=== PATIENT | female | born 1990 | race Two or more races ===

== ENCOUNTER 2018-05-11 09:52 | Inpatient (IN) | payer BC ==
[2018-05-11] MEDS ORDERED: OXYTOCIN 30 UNITS in 0.9% NS 30 UNIT/500 ML INFUS.BAG IVPB SCH (10:45)
[2018-05-11] MEDS ORDERED: TUBERCULIN PPD 5 TU/0.1ML SYRINGE (IN PATIENT USE ONLY) ID ONE (10:48)
[2018-05-11 10:54] LABS: BASO % 0.2 % (0-2.0); EOS % 0.5 % (0-4.5); HEMATOCRIT 33.6 % (32.4-45.2); HEMOGLOBIN 10.9 GM/dL (10.7-15.3); LYMPH % 15.9 % (8-40); MCH 25.8 pg (25.7-33.7); MCHC 32.6 g/dl (32.0-36.0); MEAN CELL VOLUME 79.2 fl (80-96); MEAN PLT VOLUME 8.3 fl (7.5-11.1); MONO % 7.4 % (3.8-10.2); PLATELET COUNT 243 K/MM3 (134-434); RBC 4.24 M/mm3 (3.60-5.2); RDW 15.4 % (11.6-15.6)
--- NOTE | 2018-05-11 11:05 | HP ---
Past Medical History - Admission History of Present Illness: 27 yo @ 38 2/7 wks by first trimester ultrasound consistent with LMP, EDC 05/23/2018 complicated by: 1. First trimester hyperemesis 2. Chest pain - s/p cardiology evaluation and Holter monitor, negative workup 3. Headaches - s/p neurology evaluation and negative workup 4. She declines all genetic screening, normal anatomy scan Patient presents with a chief complaint of a clear gush of fluid today at 0720. On presentation, she reports mild cramping. She also reports movement, denies vaginal bleeding. History Source: Patient Limitations to Obtaining History: No Limitations - Past Medical History Cardiovascular: No: HTN Pulmonary: No: Asthma Gastrointestinal: No: GERD ...: 1 ...Para: 0 ...EDC by Dates: 05/23/18 ...EDC by Sono: 05/23/18 Heme/Onc: No: Anemia - Past Surgical History Past Surgical History: Yes: None Hx Myomectomy: No Hx Transabdominal Cerclage: No - Alcohol/Substance Use Hx Alcohol Use: No History of Substance Use: reports: None - Social History History of Recent Travel: No Home Medications - Allergies Allergies/Adverse Reactions: Allergies Allergy/AdvReac Type Severity Reaction Status Date / Time No Known Allergies Allergy Verified 04/19/18 11:12 - Home Medications Home Medications: Ambulatory Orders Famotidine [Pepcid] 20 mg PO PRN 04/19/18 Vits96/Iron Fum/Folic [ Tablet] 1 each PO TID 04/19/18 Family Disease History - Family Disease History Family History: Denies Review of Systems - Review of Systems Constitutional: reports: No Symptoms Cardiovascular: reports: No Symptoms Respiratory: reports: No Symptoms Gastrointestinal: reports: No Symptoms Genitourinary: reports: No Symptoms Musculoskeletal: reports: No Symptoms Neurological: reports: No Symptoms Endocrine: reports: No Symptoms Hematology/Lymphatic: reports: No Symptoms Psychiatric: reports: No Symptoms Physical Exam - Maternity Constitutional: Yes: Well Nourished, No Distress, Calm Neck: Yes: Supple Cardiovascular: Yes: Regular Rate and Rhythm Lungs: Clear to auscultation - Abdominal Exam/OB Fundal Height: 40 Number of Fetuses: Single Presentation: Vertex Contractions: Yes Regularity: Regular Intensity: Mild/Mod Monitor Mode: Internal Heart Rate (range): 130 Category: I Accelerations: Non-Uniform Decelerations: None - Vaginal Exam/OB Vaginal Bleediing: No Dilatation (cm): 3 Effacement (%): 80 Amniotic Membrane Status: Ruptured Amniotic Fluid: Yes: Clear Station: -2 - Physical Exam Edema: No Psychiatric: Yes: Alert, Oriented - Labs Lab Results: PNL: O positive, antibody negative; RPR NR; HIV neg; HCV neg; HBsAg neg; Varicella Immune; Rubella Immune; Hb Ashley AA; Parvo Immune; Normal 1 H GCT; GBS neg Hemorrhage Risk Assessment - Risk Factors Medium Risk Factors: Yes: None High Risk Factors: Yes: None Risk Score: 1 Risk Level: Medium Risk Assessment/Plan 27 yo PROM, early labor 1. Admit to L&D 2. Consents reviewed and signed. Reviewed management of labor and discussed patient is early labor, reviewed augmentation with pitocin. Discussed risks of pitocin including but not limited to intolerance, uterine tachysystole, need for delivery. She expressed understanding and consent obtained. 3. GBS neg 4. Category I FHT 5. Will proceed with expectant management.
[2018-05-11 11:06] LABS: INR 0.9 (0.83-1.09); PROTHROMBIN TIME (PATIENT) 10.6 SEC (9.7-13.0)
[2018-05-11 11:09] LABS: ACTIVATED PTT 26.1 SECONDS (25.2-36.5)
[2018-05-11 11:30] LABS: ANION GAP 4 MMOL/L (8-16); BLOOD UREA NITROGEN 5 mg/dL (7-18); CALCIUM 9.4 mg/dL (8.5-10.1); CHLORIDE 109 mmol/L (98-107); CO2 20 mmol/L (21-32); CREATININE 0.6 mg/dL (0.55-1.3); GLUCOSE,RANDOM 74 mg/dL (74-106); POTASSIUM 4.1 mmol/L (3.5-5.1); SODIUM 133 mmol/L (136-145)
[2018-05-11 12:00] VITALS: BMI 28.1
[2018-05-11] MEDS ORDERED: DEXTROSE 5%-LACTATED RINGERS 1,000 ML IV SCH (12:15)
--- NOTE | 2018-05-11 15:48 | PN ---
Ante-Partal Exam - Subjective Subjective: Patient reports mild cramping Vital Signs: Vital Signs Temperature 98.7 F 05/11/18 15:00 Pulse Rate 88 05/11/18 15:00 Respiratory Rate 18 05/11/18 15:00 Blood Pressure 113/75 05/11/18 15:00 O2 Sat by Pulse Oximetry (%) Bleeding: No Headache: No Visual changes: No Right upper quadrant pain: No - Contractions Contractions: Yes Regularity: Regular Intensity: Unaware Monitor Mode: External - Exam during Labor Heart Rate: 135 Variability: Moderate Category: I Monitor Accelerations: Present Monitor Decelerations: None Exam: Vaginal Dilatation (cm): 3 Effacement (%): 80 Amniotic Membrane Status: Ruptured Meconium Staining: Light Presentation: Vertex Station: -2 - Intrapartum Hemorrhage Risk Medium Risk Factors: None High Risk Factors: None Risk Score: 0 Risk Level: Low Risk - Assessment/Plan Assessment/Plan: 27 yo augmentation of labor 1. unchanged exam, on pitocin (7) will continue per protocol 2. GBS negative 3. Will offer pain medication upon patient request 4. Will proceed with expectant management
[2018-05-11] MEDS ORDERED: FENTANYL/BUPIVACAINE/NS/PF - PCEA - 50 ML DISP.SYRIN EP ONE ×2 (16:38→20:59)
[2018-05-11] MEDS: FENTANYL/BUPIVACAINE/NS/PF - PCEA - 50 ML DISP.SYRIN EP SCH (17:05)
[2018-05-11] MEDS ORDERED: NALOXONE HCL 0.4 MG/ML VIAL IVPUSH PRN (17:20)
[2018-05-11] MEDS ORDERED: ELECTROLYTE-148 SOLN 500 ML IV ONE (17:37)
[2018-05-11] MEDS ORDERED: ELECTROLYTE-148 SOLN 1,000 ML IV SCH (18:06)
--- NOTE | 2018-05-11 18:29 | PN ---
Ante-Partal Exam - Subjective Subjective: Patient comfortable, but still feels mild contractions; pain 4/10 Vital Signs: Vital Signs Temperature 98.1 F 05/11/18 16:00 Pulse Rate 86 05/11/18 17:20 Respiratory Rate 18 05/11/18 17:20 Blood Pressure 120/98 05/11/18 17:20 O2 Sat by Pulse Oximetry (%) 100 05/11/18 17:20 Bleeding: No Headache: No Visual changes: No Right upper quadrant pain: No - Contractions Contractions: Yes Regularity: Regular Intensity: Mild Monitor Mode: External - Exam during Labor Heart Rate: 145 Variability: Moderate Category: I Monitor Accelerations: Present Monitor Decelerations: None Exam: Vaginal (4) Dilatation (cm): 4 Effacement (%): 90 Amniotic Membrane Status: Intact Amniotic Fluid: Clear Station: -2 - Intrapartum Hemorrhage Risk Medium Risk Factors: None High Risk Factors: None Risk Score: 0 Risk Level: Low Risk - Assessment/Plan Assessment/Plan: 27 yo augmentatino of labor 1. Good cervical change, will continue pitocin 2. GBS neg 3. Pain well controlled with epidural 4. Will proceed with expectant management
--- NOTE | 2018-05-11 22:00 | PN ---
Ante-Partal Exam - Subjective Subjective: Patient comfortable s/p epidural Vital Signs: Vital Signs Temperature 99.0 F 05/11/18 19:00 Pulse Rate 155 H 05/11/18 20:45 Respiratory Rate 22 H 05/11/18 20:45 Blood Pressure 159/141 H 05/11/18 20:45 O2 Sat by Pulse Oximetry (%) 99 05/11/18 20:45 Bleeding: Yes Bleeding Description: Mild Headache: No Visual changes: No Right upper quadrant pain: No - Contractions Contractions: Yes Regularity: Regular Monitor Mode: External - Exam during Labor Heart Rate: 150 Variability: Minimal, Moderate Category: II Monitor Accelerations: Present Monitor Decelerations: Variable Exam: Vaginal Dilatation (cm): 9.5 Effacement (%): 100 Amniotic Membrane Status: Ruptured Presentation: Vertex Station: 0 - Intrapartum Hemorrhage Risk Medium Risk Factors: None High Risk Factors: None Risk Score: 0 Risk Level: Low Risk - Assessment/Plan Assessment/Plan: 27 active labor 1. Excellent cervical change 2. GBS negative 3. category II FHT, will change mat. position and give O2 via facemask 4. Will proceed with expectant management
[2018-05-11] MEDS ORDERED: OXYTOCIN 20 UNITS in 0.9% NS 20 UNIT/1,000 ML INFUS.BAG IV ONE (22:16)
[2018-05-11] MEDS ORDERED: LIDOCAINE HCL 1% PRESERVATIVE FREE - 30ML VIAL ONE (22:16)
[2018-05-12] MEDS ORDERED: oxyCODONE HCL 5 MG TABLET PO PRN (01:01)
[2018-05-12] MEDS ORDERED: WITCH HAZEL 50% (TUCKS) 40 PAD/JAR PAD TP PRN (01:01)
[2018-05-12] MEDS ORDERED: BISACODYL 10 MG SUPP.RECT RC PRN (01:01)
[2018-05-12] MEDS ORDERED: METHYLERGONOVINE MALEATE 0.2 MG/1 ML AMP IM PRN (01:01)
--- NOTE | 2018-05-12 01:06 | PN ---
Delivery - Delivery Vaginal Delivery: No Problems Type of Anesthesia: Epidural Episiotomy/Laceration: Midline, 2nd degree EBL (cc): 500 Delivery, Single - Stages of Labor Date 1st Stage Initiatied: 05/11/18 Time 1st Stage Initiated: 16:00 Date 2nd Stage Initiated: 05/11/18 Time 2nd Stage Initiated: 23:00 Date of Delivery: 05/12/18 Time of Delivery: 00:33 Date Placenta Delivered: 05/12/18 Time Placenta Delivered: 00:54 Placenta: Yes: Spontaneous - Condition of Infant Infant Gender: Male Position: Left, OA - 1 Minute Total Score: 9 5 Minutes Total Score: 9 - Feeding Plan Initial Plan: Exclusive throughout hospitalization Remarks - Remarks Remarks: Patient progressed to fully dilated and at 0033 via delivered a viable male in CIARA position, APGARs 9,9. Weight and length unknown at this time. Head delivered spontaneously followed by shoulders and body without difficulty. with spontaneous cry and placed on mother's abdomen. Nose and mouth was bulb suctioned. Cord was clamped and cut. Perineum and vagina examined, a second degree laceration was noted and repaired in the usual fashion. Rectal exam revealed no sutures in rectum. Placenta was delivered spontaneously and intact. 20 units of pitocin in 1 L IVF was given. All counts correct x 2. Mother and stable in LDR. EBL 500cc.
[2018-05-12] MEDS ORDERED: OXYTOCIN 20 UNITS in 0.9% NS 20 UNIT/1,000 ML INFUS.BAG IV SCH (01:15)
[2018-05-12] MEDS: PRENATAL VITAMINS W/ FOLIC ACID TABLET (FP) PO SCH (09:46)
--- NOTE | 2018-05-12 10:22 | DS ---
Physical Exam-[employer] INSPECTOR TIGHT Vital Signs: Vital Signs Temperature 98.7 F 05/12/18 08:00 Pulse Rate 88 05/12/18 08:00 Respiratory Rate 18 05/12/18 08:00 Blood Pressure 96/53 L 05/12/18 08:00 O2 Sat by Pulse Oximetry (%) 98 05/12/18 02:15 Labs: CBC, BMP 05/11/18 10:20 05/11/18 10:20 Delivery - Delivery Vaginal Delivery: No Problems Type of Anesthesia: Epidural Episiotomy/Laceration: 2nd degree EBL (cc): 500 Delivery, Single - Stages of Labor Date 1st Stage Initiatied: 05/11/18 Time 1st Stage Initiated: 16:00 Date 2nd Stage Initiated: 05/11/18 Time 2nd Stage Initiated: 23:00 Date of Delivery: 05/12/18 Time of Delivery: 00:33 Time Placenta Delivered: 00:54 Placenta: Yes: Spontaneous - Condition of Channel 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 She was started on Pitocin for augmentation of labor. She progressed to deliver via a viable male . PPD # 1 she was ambulating, voiding and had adequate pain control. She fulfilled all criteria for discharge home PPD #2 Condition: Good - Instructions Diet, Activity, Other Instructions: Physical activity Resume your normal everyday activity as tolerated no heavy lifting or exercise until seen by your surgeon. You may walk unlimited que of and climb stairs. You may resume driving the car when you feel safe and comfortable behind the wheel. No sexual activity as instructed. Diet There are no dietary restrictions. Eat healthy, high-fiber foods. Drink 6 to 8 glasses of liquid each day. This will assist in keeping your bowels are regular. Pain management You may take Tylenol or acetaminophen or Ibuprofen (for example, Motrin, Advil etc.) from my pain prescription medication is ordered should be taken as prescribed for moderate to severe pain. Call MD for any of the following: Severe pain not relieved by medication Fever of 101 or higher Excessive bleeding or drainage on dressing Inability to urinate Referrals: Es Hansen MD [Staff Physician] - Disposition: HOME - Home Medications Comprehensive Discharge Medication List: Ambulatory Orders Famotidine [Pepcid] 20 mg PO PRN 04/19/18 Vits96/Iron Fum/Folic [ Tablet] 1 each PO TID 04/19/18
[2018-05-12] MEDS: IBUPROFEN 600 MG TABLET (FP) PO PRN (17:08)
[2018-05-12] MEDS: ACETAMINOPHEN 325 MG TABLET (FP) PO PRN (17:11)
[2018-05-12] MEDS: BENZOCAINE 20% 57 GM BOTTLE TP PRN (17:15)
[2018-05-12] MEDS: BENZOCAINE 28 GM HEMORRHOIDAL OINTMENT TP PRN (20:40)
[2018-05-12] MEDS: FENTANYL/BUPIVACAINE/NS/PF - PCEA - 50 ML DISP.SYRIN EP SCH (22:13)
--- NOTE | 2018-05-13 07:14 | PN ---
Progress Note (short form) - Note Progress Note: ppd 1 doing well, void ok, no excess vaginal bleeding CBC, BMP 05/11/18 10:20 05/11/18 10:20 Last Vital Signs Temp Pulse Resp BP Pulse Ox 98.9 F 88 18 110/66 98 05/12/18 22:00 05/12/18 22:00 05/12/18 22:00 05/12/18 22:00 05/12/18 02:15 abdomen soft, no cva uterus firm, non tender lochia mild no calf tenderness plan ambulate cbc
[2018-05-13 07:42] LABS: BASO % 0.3 % (0-2.0); EOS % 1.3 % (0-4.5); HEMATOCRIT 27.8 % (32.4-45.2); HEMOGLOBIN 8.9 GM/dL (10.7-15.3); LYMPH % 17.5 % (8-40); MCH 25.5 pg (25.7-33.7); MCHC 32.1 g/dl (32.0-36.0); MEAN CELL VOLUME 79.5 fl (80-96); MEAN PLT VOLUME 8.1 fl (7.5-11.1); MONO % 5.5 % (3.8-10.2); NEUT % 75.4 % (42.8-82.8); PLATELET COUNT 202 K/MM3 (134-434); RBC 3.49 M/mm3 (3.60-5.2); RDW 15.5 % (11.6-15.6); WHITE BLOOD COUNT 12.4 K/mm3 (4.0-10.0)
[2018-05-13] MEDS: PRENATAL VITAMINS W/ FOLIC ACID TABLET (FP) PO SCH (09:47)
[2018-05-13] MEDS ORDERED: SENNOSIDES/DOCUSATE COMBO (SENNA PLUS) TABLET (UD) PO PRN (22:00)
[2018-05-14] MEDS: ACETAMINOPHEN 325 MG TABLET (FP) PO PRN (07:28)
[2018-05-14] MEDS: IBUPROFEN 600 MG TABLET (FP) PO PRN (07:28)
[2018-05-14 08:29] VITALS: BP 109/66; PULSE 89; TEMP 97.5
[2018-05-14] MEDS: PRENATAL VITAMINS W/ FOLIC ACID TABLET (FP) PO SCH (09:10)
[2018-05-14] MEDS: BENZOCAINE 20% 57 GM BOTTLE TP PRN (09:12)
[2018-05-14] MEDS: BENZOCAINE 28 GM HEMORRHOIDAL OINTMENT TP PRN (09:13)
== END 2018-05-14 12:30 | disposition home or self-care (01) | DRG 807 ==
LOC: JLDR 09:52 → J3W 05-12 03:50
PROVIDERS: ADMIT Obstetrics & Gynecology; ATTEND Obstetrics & Gynecology
PROC: 10E0XZZ Delivery of Products of Conception, External Approach (ICD-10-PCS; principal; 2018-05-12)
PROC: 0KQM0ZZ Repair Perineum Muscle, Open Approach (ICD-10-PCS; 2018-05-12)
DX: O70.1 Second degree perineal laceration during delivery (principal); Z37.0 Single live birth; Z3A.38 38 weeks gestation of pregnancy
CPT/HCPCS: 36415; 59409; 80048; 85025; 85610; 85730; 86593; 86850; 86900; 86901